=== PATIENT | male | born 1950 | race Caucasian/White ===

== ENCOUNTER → 2016-11-02 | Outpatient (CLI) | payer MEDICARE, OTHER | END | disposition home or self-care (01) | LOC: GMAJ 10:49 | PROVIDERS: ATTEND Family Medicine | DX: Z12.5 Encounter for screening for malignant neoplasm of prostate (principal) ==

== ENCOUNTER → 2019-12-22 | Outpatient (CLI) | payer MEDICARE, OTHER ==
--- NOTE | 2019-12-22 09:27 | US ---
EXAM DESCRIPTION: Carotid Duplex: ULTRASOUND. CLINICAL HISTORY: 69 years Male OCCLUSION AND STENOSIS COMPARISON: None. TECHNIQUE: Transcutaneous scanning utilizing jesus-scale and Doppler modes to evaluate the bilateral carotid systems and vertebral arteries. Percentage of diameter of stenosis or no stenosis recorded will be based upon NASCET criteria. FINDINGS: Peak systolic/end diastolic velocities (CM-Sec) CCA Right 115/23 Left 132/21. ICA Right proximal 60/19, mid 63/18. Left proximal 46/13, Distal 91/21. Vertebral Right 45/14 Left 48/10. ECA (PS Only) Right 94 left 89. ICA/CCA peak systolic velocity ratio: Right 0.5 Left 0.7 ICA/CCA end diastolic velocity ratio: Right 0.8 Left 1.0 Vertebral arteries: antegrade flow. Comments Comments: Atherosclerotic calcifications in the bilateral common carotid bulbs and the bilateral ICAs. Right proximal ICA: Area stenosis and diameter stenosis less than 20%. IMPRESSION: 1. Doppler evaluation of the bilateral carotid systems and vertebral arteries shows no hemodynamically significant stenoses (less than 70%). 2. No significant amount of plaque in the carotid arteries bilaterally. Bilateral vertebral arteries showed antegrade-cephalad flow. Electronically signed by: Atul Medina MD 12/22/2019 9:25 AM CDT
--- NOTE | 2019-12-22 09:32 | CT ---
EXAM DESCRIPTION: Head CLINICAL HISTORY: OCCLUSION AND STENOSIS OF BILATERAL CAROTID ARTERIES COMPARISON: None TECHNIQUE: Noncontrast transaxial CT images of the head are obtained from base to vertex. This exam was performed according to our departmental dose-optimization program, which includes automated exposure control, adjustment of the mA and/or kV according to patient size and/or use of iterative reconstruction technique. FINDINGS: The midline structures are not displaced. Sulci are age-appropriate. There are areas of decreased attenuation in the periventricular white matter and the white matter of the centrum semiovale. There is no evidence of mass, mass-effect, hydrocephalus, or acute intracranial hemorrhage. No abnormal extra axial fluid collection is seen. Mild calcifications of the intracranial arterial vasculature. Bone windows show no evidence of depressed skull fracture. Small area of scalp soft tissue swelling and increased attenuation in the right parietal region measures 5 mm thickness by 2 cm transverse. This could represent scalp soft tissue scarring. The visualized paranasal sinuses are unremarkable. IMPRESSION: 1. Age-appropriate atrophy with evidence of old small vessel ischemic type changes seen. 2. No acute abnormality is seen on noncontrast CT of the head. CT is insensitive for evaluation of acute intracranial ischemia. If clinically indicated further evaluation with MRI may be useful. Electronically signed by: Henrry Woods MD 12/22/2019 9:30 AM CDT
== END | disposition home or self-care (01) ==
LOC: US 07:43
PROVIDERS: ATTEND Family Medicine
DX: I65.23 Occlusion and stenosis of bilateral carotid arteries (principal)

== ENCOUNTER 2020-03-17 11:04 | Emergency (ER) | payer OTHER ==
--- NOTE | 2020-03-17 12:31 | RAD ---
EXAM DESCRIPTION: Chest,1 View CLINICAL HISTORY: 69 years Male, cough, mild sob x1 week COMPARISON: None. FINDINGS: One view/radiograph Heart size and pulmonary vessels are within normal limits. There is no pneumothorax or pleural effusion. The lungs are clear bilaterally. The soft tissues are unremarkable. No acute osseous findings. IMPRESSION: No acute cardiopulmonary abnormality. Electronically signed by: Farhan Pereira MD 03/17/2020 12:30 PM [facility]
--- NOTE | 2020-03-17 13:22 | ED.PDOC ---
History of Present Illness - General Chief Complaint: Respiratory Problem Time Seen by Provider: 03/17/20 12:13 - History of Present Illness Initial Comments: The patient is a 69-year-old male presents emergency room secondary to a week's worth of a cough and a mild runny nose as well as some mild shortness of breath. He had a coronavirus swab done at the drive-through clinic that we are waiting for the results on. Lung tidwell actually sound clear. He has not any respiratory distress. Oxygen saturations ranged from 94 to 98% on room air here. He is not currently febrile. No significant chest pain. No swelling in the extremities. Timing/Duration: 1 week Severity: mild Improving Factors: nothing Worsening Factors: nothing Associated Symptoms: cough, malaise Home Medications: Ambulatory Orders Azithromycin 500 mg PO DAILY #5 tab 03/17/20 predniSONE [Prednisone] 40 mg PO DAILY #10 tab 03/17/20 Review of Systems - Review of Systems Constitutional: States: malaise EENTM: States: nose congestion Respiratory: States: cough, short of breath - Very mild Cardiology: States: no symptoms reported Gastrointestinal/Abdominal: States: no symptoms reported Genitourinary: States: no symptoms reported Musculoskeletal: States: no symptoms reported Skin: States: no symptoms reported Neurological: States: headache Endocrine: States: no symptoms reported All other Systems: No Change from Baseline Physical Exam - Physical Exam General Appearance: Alert, Comfortable, No apparent distress Eye Exam: bilateral normal Ears, Nose, Throat: hearing grossly normal, normal pharynx, nasal congestion Neck: full range of motion, supple Respiratory: lungs clear, normal breath sounds, no respiratory distress, no accessory muscle use Cardiovascular/Chest: normal peripheral pulses, no edema, other - Regular rate Peripheral Pulses: radial,right: 2+, radial,left: 2+ Gastrointestinal/Abdominal: non tender, soft Rectal Exam: deferred Back Exam: no CVA tenderness, no vertebral tenderness Extremity: non-tender, normal inspection, no pedal edema, normal capillary refill 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 Progress - Progress Progress: 03/17/20 13:23 The patient is a 69-year-old male presented emergency room with an acute coronavirus infection of about a week's duration. The patient is doing well as far as oxygenating and no significant respiratory distress. He is going to be placed on azithromycin and prednisone for the next 5 days. Obviously if he is worsening then he needs to return to the emergency room. He does of course need to isolate for the next couple weeks. Keep well-hydrated. Tylenol used for discomfort. ER warnings are given. doris meléndez [id number] - Results/Orders Results/Orders: Chest x-ray shows no evidence of acute pathology. EKG shows normal sinus rhythm with occasional PACs. Normal axis. Slow R wave progression. No ST segment or T wave changes indicative of acute ischemia. The patient tested positive for coronavirus at his primary care doctor today. Departure - Departure Clinical Impression: Coronavirus infection Disposition: Discharge to Home or Self Care Condition: Fair Departure Forms: ED Discharge - Pt. Copy, Patient Portal Self Enrollment Instructions: Coronavirus Disease 2019 (COVID-19) Diet: regular diet Activity: increase activity as tolerated Referrals: Iván Padilla MD [Primary Care Provider] - 1-2 Weeks Prescriptions: Azithromycin 500 mg PO DAILY #5 tab predniSONE [Prednisone] 40 mg PO DAILY #10 tab Home Medications: Ambulatory Orders Azithromycin 500 mg PO DAILY #5 tab 03/17/20 predniSONE [Prednisone] 40 mg PO DAILY #10 tab 03/17/20 Additional Instructions: The patient is a 69-year-old male presented emergency room with an acute coronavirus infection of about a week's duration. The patient is doing well as far as oxygenating and no significant respiratory distress. He is going to be placed on azithromycin and prednisone for the next 5 days. Obviously if he is worsening then he needs to return to the emergency room. He does of course need to isolate for the next couple weeks. Keep well-hydrated. Tylenol used for discomfort. ER warnings are given.
[2020-03-17 13:39] VITALS: BP 125/76; TEMP 99.2; O2SAT 96
== END 2020-03-17 13:30 | disposition home or self-care (01) ==
LOC: ER 11:04
DX: U07.1 COVID-19 (principal); I49.1 Atrial premature depolarization

== ENCOUNTER 2020-03-22 17:39 | Observation (INO) | payer OTHER ==
[2020-03-22] MEDS ORDERED: SODIUM CHLORIDE 0.9% (FLUSH) 10 ML SYG IV PRN (18:27)
[2020-03-22] MEDS ORDERED: ADENOSINE INJECTION 6 MG/2 ML VIAL IV ONE (18:28)
[2020-03-22] MEDS ORDERED: SODIUM CHLORIDE 0.9% 1000ML 1,000 ML ONE (18:43)
--- NOTE | 2020-03-22 19:03 | RAD ---
EXAM DESCRIPTION: Chest,1 View CLINICAL HISTORY: palpitations COMPARISON: March 17, 2020 FINDINGS: Cardiac silhouette is within normal limits. Aorta is tortuous. EKG leads project over the chest. Bandlike opacity at the level of the lingula could be secondary to subsegmental atelectasis. Early infectious process cannot be excluded. Short-term follow-up recommended. There is no acute osseous process visualized. IMPRESSION: Bandlike opacity at the level of the lingula could be secondary to subsegmental atelectasis. Early infectious process cannot be excluded. Short-term follow-up recommended. Electronically signed by: Suhail Mei MD 03/22/2020 7:02 PM [facility] [email or web address]]
--- NOTE | 2020-03-22 21:10 | ED.PDOC ---
History of Present Illness - General Chief Complaint: Respiratory Problem Stated Complaint: chest tightness, light headed, tachycardia Time Seen by Provider: 03/22/20 18:27 Source: patient, RN notes reviewed, Vital Signs reviewed Exam Limitations: no limitations - History of Present Illness Initial Comments: Patient is a 70-year-old white male who presents with complaints of weakness, chest tightness and shortness of breath. This started acutely approximately 1 hour prior to arrival. Patient has no history of cardiac problems. Patient does have a history of hypertension, high cholesterol and diabetes. Patient noted his heart rate to be in the 140s at home and came in after the recommendation from his daughter who is a nurse. Patient states that the chest tightness is mild in intensity. There is no radiation of this tightness. The tightness and shortness of breath are worse with exertion. It is partially relieved by resting. Timing/Duration: 1 hour Severity: moderate Improving Factors: rest Worsening Factors: movement Associated Symptoms: chest pain, shortness of breath Allergies/Adverse Reactions: Allergies NO KNOWN ALLERGY Allergy (Verified 03/22/20 18:26) Home Medications: Ambulatory Orders Azithromycin 500 mg PO DAILY #5 tab 03/17/20 predniSONE [Prednisone] 40 mg PO DAILY #10 tab 03/17/20 Review of Systems - Review of Systems Constitutional: States: no symptoms reported, see HPI. Denies: chills, fever, malaise, weakness EENTM: States: no symptoms reported. Denies: eye pain, blurred vision, double vision Respiratory: States: see HPI, short of breath. Denies: wheezing Cardiology: States: see HPI, chest pain, palpitations. Denies: syncope Gastrointestinal/Abdominal: States: no symptoms reported. Denies: abdominal pain, diarrhea, nausea, vomiting Genitourinary: States: no symptoms reported Musculoskeletal: States: no symptoms reported. Denies: back pain, joint pain, neck pain Skin: States: no symptoms reported. Denies: change in color, dryness, rash Neurological: States: no symptoms reported. Denies: headache, tingling, tremors, weakness Endocrine: States: no symptoms reported. Denies: increased hunger, increased thirst, increased urine Hematologic/Lymphatic: States: no symptoms reported. Denies: blood clots, easy bleeding All other Systems: No Change from Baseline Past Medical History (General) - Patient Medical History Hx Hypertension: Yes Hx Diabetes: Yes Surgical History: Hysterectomy - Vaccination History Hx Influenza Vaccination: Yes - Social History Hx Tobacco Use: No Hx Alcohol Use: No Hx Substance Use: No Hx Substance Use Treatment: No Hx Depression: No Family Medical History - Family History Mother Family History: No Known Physical Exam - Physical Exam General Appearance: Alert, Anxious, Restless, Well Developed, Well Groomed, Well Hydrated, Well Nourished Eye Exam: bilateral normal Ears, Nose, Throat: hearing grossly normal, normal ENT inspection, normal pharynx Neck: non-tender, full range of motion, supple Respiratory: chest non-tender, lungs clear, normal breath sounds, no respiratory distress, no accessory muscle use Cardiovascular/Chest: normal peripheral pulses, no edema, no gallop, no murmur, tachycardia, irregularly irregular Peripheral Pulses: radial,right: 2+, radial,left: 2+ Gastrointestinal/Abdominal: normal bowel sounds, non tender, soft, no organomegaly, distended - Pt is obese Back Exam: normal inspection, no CVA tenderness, no vertebral tenderness Extremity: normal range of motion, non-tender, normal inspection, no calf tenderness 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 fib/flutter, Covid, palpitations among others. 03/22/20 21:34 Patient has converted after 2 doses of Cardizem. His shortness of breath and chest tightness has resolved. Plan on admission for further evaluation or repeat cardiac enzymes. I discussed this plan of care with the patient he voices understanding and agreement. I discussed this with Brianna Matos NP, and she accepts patient for admission. Serg Graham M.D. #[id number] - Results/Orders Results/Orders: EKG performed 22 March 2020 at 1821 hours: Atrial flutter with 2-1 AV conduction block, left axis deviation, nonspecific ST changes, abnormal EKG. No comparison EKG available at this time. Repeat EKG performed 22 March 2020 at 2126 hrs.: Sinus bradycardia with pr emature supraventricular complexes at 57 bpm, normal axis deviation, no ST or T wave changes concerning for ischemia, otherwise normal EKG. Comparison EKG from earlier in the evening shows a change from his atrial flutter. EXAM DESCRIPTION: Chest,1 View CLINICAL HISTORY: palpitations COMPARISON: March 17, 2020 FINDINGS: Cardiac silhouette is within normal limits. Aorta is tortuous. EKG leads project over the chest. Bandlike opacity at the level of the lingula could be secondary to subsegmental atelectasis. Early infectious process cannot be excluded. Short-term follow-up recommended. There is no acute osseous process visualized. IMPRESSION: Bandlike opacity at the level of the lingula could be secondary to subsegmental atelectasis. Early infectious process cannot be excluded. Short-term follow-up recommended. Electronically signed by: Suhail Mei MD 03/22/2020 7:02 PM 03/22/20 18:27 IV Care:Saline Lock per Protoc QSHIFT Telemetry ONCE Sodium Chloride 0.9% (Flush) [Saline Flush Syringe] 3 ml IV PRN PRN Pulse Oximetry Assessment DAILY URINALYSIS Stat 03/22/20 18:30 EKG STAT 03/23/20 09:00 Pulse Ox Daily Laboratory Results - last 24 hr 03/22/20 03/22/20 18:40 18:40 WBC 9.8 RBC 5.46 Hgb 16.0 Hct 45.9 MCV 84.1 MCH 29.2 MCHC 34.8 RDW 13.4 Plt Count 226 MPV 8.5 Absolute Neuts (auto) 8.40 H Absolute Lymphs (auto) 0.80 L Absolute Monos (auto) 0.50 Absolute Eos (auto) 0.00 Absolute Basos (auto) 0.00 Neutrophils % 85.4 H Lymphocytes % 8.5 L Monocytes % 5.5 Eosinophils % 0.1 L Basophils % 0.5 PT 10.1 INR 1.02 PTT (SP) 23.5 D-Dimer, Quantitative < 131.0 L Sodium 138 Potassium 4.3 Chloride 103 Carbon Dioxide 24 Anion Gap 15.3 BUN 17 Creatinine 0.85 BUN/Creatinine Ratio 20.0 Random Glucose 337 H Serum Osmolality 290.5 Calcium 8.8 Magnesium 2.2 Total Bilirubin 0.9 Direct Bilirubin 0.2 Indirect Bilirubin 0.7 AST 27 ALT 35 Alkaline Phosphatase 38 L Creatine Kinase 53 CK-MB (CK-2) 3.3 CK-MB (CK-2) % Not Reportable Troponin I 0.02 B-Natriuretic Peptide 137.0 H Serum Total Protein 7.1 Albumin 3.9 Vital Signs 03/22/20 03/22/20 18:21 18:30 Temperature 96.0 F L Pulse Rate [ 144 H 144 H pulse ox] Respiratory 20 Rate Blood Pressure 108/86 [Left Arm] O2 Sat by Pulse 96 Oximetry Departure - Departure Clinical Impression: Atrial flutter by electrocardiogram, Paroxysmal atrial flutter Time of Disposition: 21:36 Disposition: Admit Patient Condition: Good Departure Forms: Patient Portal Self Enrollment Diet: low fat, low cholesterol Activity: ambulate only with walker Referrals: Ivná Padilla MD [Primary Care Provider] - 1-2 Weeks Home Medications: Ambulatory Orders Azithromycin 500 mg PO DAILY #5 tab 03/17/20 predniSONE [Prednisone] 40 mg PO DAILY #10 tab 03/17/20 Critical Care Note - Critical Care Note Total Time (mins): 45 Decision To Admit - Decistion To Admit Decision to Admit Date: 03/22/20 Decision to Admit Time: 19:00
[2020-03-23] MEDS ORDERED: SODIUM CHLORIDE 0.9% (FLUSH) 10 ML SYG IV PRN (02:45)
[2020-03-23] MEDS ORDERED: ACETAMINOPHEN 325 MG TAB PO PRN (02:45)
[2020-03-23] MEDS ORDERED: IV SET AND CAP CHANGE INJ INJ SCH (03:00)
[2020-03-23] MEDS: diltiaZEM HCL TAB 30 MG TAB PO SCH ×2 (03:51→07:41)
[2020-03-23] MEDS ORDERED: DEXTROSE 50% 25 GM/50 ML SYG IV PRN (04:39)
[2020-03-23] MEDS ORDERED: GLUCAGON INJ 1 MG VIAL SUBCU PRN (04:39)
[2020-03-23] MEDS ORDERED: PANTOPRAZOLE SODIUM TAB 40 MG PO SCH (06:30)
[2020-03-23] MEDS: INSULIN LISPRO 100 UNITS/ML PEN SUBCU SCH ×2 (07:03→12:15)
[2020-03-23] MEDS ORDERED: metFORMIN HCL 500 MG TAB ONE (07:36)
[2020-03-23] MEDS ORDERED: LISINOPRIL 5 MG TAB PO SCH (09:00)
[2020-03-23] MEDS ORDERED: SODIUM CHLORIDE 0.9% (FLUSH) 10 ML SYG IV SCH (09:00)
[2020-03-23] MEDS ORDERED: PYRIDOSTIGMINE BROMIDE 60 MG PO SCH (09:00)
[2020-03-23] MEDS ORDERED: NON-FORMULARY MEDICATION 1 EA MIS (Dulaglutide [Trulicity] 0.75 MG) SC SCH (09:00)
[2020-03-23] MEDS ORDERED: CHLORTHALIDONE 25 MG TAB PO SCH (09:00)
[2020-03-23] MEDS ORDERED: NON-FORMULARY MEDICATION 1 EA MIS (Metformin Hcl [Fortamet] 500 MG) PO SCH (09:00)
[2020-03-23] MEDS ORDERED: PNEUMOCOCCAL VACCINE 0.5 ML INJ IM ONE (12:47)
[2020-03-23 13:23] VITALS: BP 123/73; TEMP 98; O2SAT 93
[2020-03-23] MEDS ORDERED: ATORVASTATIN 20 MG TAB PO SCH (21:00)
[2020-03-24] MEDS ORDERED: NON-FORMULARY MEDICATION 1 EA MIS (Dulaglutide [Trulicity] 0.75 MG) SUBCU SCH (09:00)
[2020-03-24] MEDS ORDERED: ASPIRIN TABLET 325 MG TAB PO SCH (09:00)
--- NOTE | 2020-04-12 10:53 | SSS ---
SUPERVISING PHYSICIAN: Cali Guerrier MD DATE OF ADMISSION: 03/23/20 DATE OF DISCHARGE: 03/23/20 ADMISSION DIAGNOSIS: 1. Paroxysmal atrial fibrillation. DISCHARGE DIAGNOSIS: 1. Paroxysmal atrial fibrillation. 2. Hypertension. 3. Diabetes mellitus, type 2. CHIEF COMPLAINT: Chest tightness, palpitations. HISTORY OF PRESENT ILLNESS: Mr. Ramirez is a 70-year-old male patient with a history of diabetes mellitus, type 2, hypertension and hypercholesterolemia. He presented to the Emergency Room complaining of weakness, chest tightness and shortness of breath. He endorses the symptoms had started about an hour prior to his arrival. He has no significant other cardiac history other than hypertension and hypercholesterolemia. He noted his heart rate at home was in the 140s. His daughter is a nurse and recommended he come in for evaluation. On arrival to the ER, 12-lead EKG showed he was in atrial fibrillation/atrial flutter with rapid ventricular response in the 140s. He was given 2 doses of Cardizem and converted to sinus rhythm. His symptoms resolved with no more chest pain, no more chest tightness. His lab studies initially in the ER showed troponin 0.02. He was placed in observation for initiation of oral Cardizem and close monitoring. He was placed in observation in stable condition. PAST MEDICAL HISTORY: 1. Hypertension. 2. Diabetes mellitus, type 2. 3. Hypercholesterolemia. PAST SURGICAL HISTORY: None listed. MEDICATIONS: 1. Trulicity 0.75 mg weekly. 2. Lipitor 20 mg at bedtime. 3. Chlorthalidone 25 mg daily. 4. Lisinopril 5 mg daily. 5. Omeprazole 40 mg daily. 6. Fortamet 500 mg daily. 7. Pyridostigmine 60 mg t.i.d. ALLERGIES: NO KNOWN DRUG ALLERGIES. FAMILY HISTORY: Noncontributory to current admission. SOCIAL HISTORY: The patient is and lives in [place], [place]. 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 He has no history of tobacco or illicit drug use. REVIEW OF SYSTEMS: CONSTITUTIONAL: Denies any fevers, chills, general malaise or weakness. HEENT: Denies headaches, sore throats, earaches, nasal congestion, vision changes. RESPIRATORY: As noted in history of present illness, some mild shortness of breath. Denies coughing, wheezing. CARDIOVASCULAR: As noted in history of present illness, chest pains, palpitations. Denies syncopal episodes. GASTROINTESTINAL: Denies nausea, vomiting, diarrhea, constipation or abdominal pain. GENITOURINARY: Denies dysuria, hematuria, polyuria. MUSCULOSKELETAL: Denies joint pain, back pain, neck pain. SKIN: Denies lesions, rashes, moles or unexplained changes. NEUROLOGIC: Denies headaches, tingling, tremors, weakness, paresthesias or other focal deficits. HEMATOLOGIC: Denies unexplained bleeding, bruising or transfusion reactions. PHYSICAL EXAMINATION: VITAL SIGNS: Initially in the Emergency Room, he was afebrile at 96.0, pulse 144, blood pressure 108/86, respirations 20, saturation 96% on room air. After Cardizem and converting, on discharge he had temperature 98, pulse 61, blood pressure 123/73, respirations 20, saturation 97% on room air. GENERAL: The patient on admission and discharge was resting comfortably, did not appear to be in any acute distress, no complaining of any chest pain. HEENT: Tympanic membranes clear bilaterally. Oropharynx is pink, moist without any lesions. NECK: Supple, nontender with full range of motion. No jugular venous distention noted. RESPIRATORY: Lung sounds are clear to auscultation bilaterally without any rhonchi, wheezes or rales. CARDIOVASCULAR: Regular rate and rhythm without any appreciable murmurs, gallops, or rubs. ABDOMEN: Soft, nontender. Positive bowel sounds. EXTREMITIES: There is no edema. NEUROLOGIC: Cranial nerves II-XII are grossly intact. Facial features are symmetrical. Extraocular movements are within normal limits. There is no nystagmus noted. The patient is alert and oriented times three. SKIN: Warm, pink and dry. LABORATORY: CBC showed normal white count of 9,800, hemoglobin 16, hematocrit 45.9, platelet count 226,000. Differential showed a slight left shift. Coagulation studies showed normal PT, PTT and D-dimer. Chemistries showed normal electrolytes. Initial glucose was 337. Liver functions were all normal. Calcium and magnesium normal. Troponins within normal limits. CK within normal limits. MICROBIOLOGY: Nasal swab for COVID was negative. RADIOLOGY: EKG initially on admission showed atrial flutter with a rapid ventricular response in the 140s. After Cardizem and prior to discharge, EKG showed sinus rhythm with no ST or T-wave changes to indicate any acute ischemia or STEMI. Chest x-ray showed just a band-like opacity at the level of the lingula which could represent subsegmental atelectasis versus early infectious process cannot be certainly excluded. Followup recommended. HOSPITAL COURSE: Mr. Ramirez was placed in observation from the Emergency Room after he had presented with atrial flutter and rapid ventricular response. He was given two doses of Cardizem in the ER and did convert to sinus rhythm and was started on oral Cardizem 180 mg. The patient was placed on telemetry after placed in observation. He had no recurrence of the symptoms, he had no ectopy, he had no changes in his rhythm, showing a sinus rhythm. Prior to discharge, he was started on Eliquis after consultation with Dr. Padilla and Dior for rate control. He showed no symptoms of chest pains, no acute symptoms of any ischemia or STEMI or acute coronary syndrome. His rate was controlled, stable blood pressure with discharge blood pressure of 123/73 with heart rate 61, saturation 97% on room air. It was felt he had clinically stabilized and was showing stable on Cardizem to the point where he could be discharged to followup with Cardiology and his primary care physician. ASSESSMENT: 1. Paroxysmal atrial fibrillation. 2. Hypertension. 3. Diabetes mellitus, type 2. PLAN: Mr. Ramirez was admitted as noted above and treated for acute paroxysmal atrial fibrillation and converted with Cardizem and started on oral Cardizem and Eliquis. He was discharged home to followup with Dr. Padilla and Cardiology to be arranged by Dr. Padilla. He was to see Dr. Padilla on 03/28/20. He was to resume his normal diabetic diet and increase activity as tolerated. New medications prescribed on discharge were: 1. Cardizem 180 mg daily, #30, no refills. 2. Eliquis 5 mg twice daily, #60, no refills. All medications to be continued refills by Dr. Padilla as necessary. All other medications prior to hospitalization were continued, which included: 1. Trulicity 0.75 mg weekly. 2. Lipitor 20 mg at bedtime. 3. Chlorthalidone 25 mg daily. 4. Lisinopril 5 mg daily. 5. Omeprazole 40 mg daily. 6. Fortamet 500 mg daily. 7. Pyridostigmine 60 mg t.i.d. CONDITION ON DISCHARGE: Stable and improved. DISPOSITION: The patient was discharged home. #[id number] MTDD
== END 2020-03-23 13:10 | disposition home or self-care (01) ==
LOC: ER 17:39 → MS 22:48
PROVIDERS: ADMIT Nurse Practitioner Acute Care; ATTEND Nurse Practitioner Family
DX: I48.0 Paroxysmal atrial fibrillation (principal); I48.92 Unspecified atrial flutter; R07.89 Other chest pain; I10 Essential (primary) hypertension; E11.9 Type 2 diabetes mellitus without complications; E78.00 Pure hypercholesterolemia, unspecified; Z20.828 Contact with and (suspected) exposure to other viral communicable diseases; Z79.84 Long term (current) use of oral hypoglycemic drugs; Z79.899 Other long term (current) drug therapy
CPT/HCPCS: 96374; 96375; J0153; J7030; A4216 ×3; 85379; 82948 ×2; 36415; 82550; 80048; 82553; 85025; 85730; 85610; 84484; 80076; 83880; 36416 ×2; 71045; G0009; 94760 ×3; 99285; 93005 ×4; G0378; 87635

== ENCOUNTER 2020-05-30 05:25 | Day surgery (SDC) | payer OTHER ==
[2020-05-30] MEDS ORDERED: TROP1%/CYCLOPEN 1%/PHENYL 2.5% DROPS OPHTH ONE (05:26)
[2020-05-30] MEDS ORDERED: MIDAZOLAM INJ 2 MG/2 ML VIAL ONE (06:58)
[2020-05-30] MEDS ORDERED: PROPARACAINE 0.5% OPHTH SOL 15 ML BTTL RIGHT_EYE ONE (08:58)
[2020-05-30] MEDS ORDERED: DEXAMETHASONE 0.1% OPHTH SOL 1 DROP RIGHT_EYE ONE ×2 (09:10→09:18)
[2020-05-30] MEDS ORDERED: TOBRAMYCIN SULF 0.3 % OPHT SOL 1 DROP RIGHT_EYE ONE ×2 (09:10→09:18)
[2020-05-30] MEDS ORDERED: MOXIFLOXACIN HCL (OPHTH) 1 DROP DROPS RIGHT_EYE ONE ×2 (09:10→09:18)
[2020-05-30] MEDS ORDERED: LIDOCAINE 1% MPF 2 ML VIAL INJ ONE (09:10)
[2020-05-30] MEDS ORDERED: BRIMONIDINE 0.2% OPHTH DROPS RIGHT_EYE ONE ×2 (09:11→09:18)
== END 2020-05-30 10:02 | disposition home or self-care (01) ==
LOC: AMB 05:25
PROVIDERS: ATTEND Ophthalmology
DX: E11.36 Type 2 diabetes mellitus with diabetic cataract (principal); H25.11 Age-related nuclear cataract, right eye; I10 Essential (primary) hypertension; Z79.84 Long term (current) use of oral hypoglycemic drugs; Z79.899 Other long term (current) drug therapy
CPT/HCPCS: 00142; 36416; 66984; 82948; J2250

== ENCOUNTER 2020-06-20 05:28 | Day surgery (SDC) | payer OTHER ==
[2020-06-20] MEDS ORDERED: TROP1%/CYCLOPEN 1%/PHENYL 2.5% DROPS OPHTH ONE (05:29)
[2020-06-20] MEDS ORDERED: MIDAZOLAM INJ 2 MG/2 ML VIAL ONE (07:40)
[2020-06-20] MEDS ORDERED: LIDOCAINE 1% 2 ML VIAL INJ ONE (07:44)
[2020-06-20] MEDS ORDERED: DEXAMETHASONE 0.1% OPHTH SOL 1 DROP LEFT_EYE ONE (07:44)
[2020-06-20] MEDS ORDERED: TOBRAMYCIN SULF 0.3 % OPHT SOL 1 DROP LEFT_EYE ONE (07:44)
[2020-06-20] MEDS ORDERED: BRIMONIDINE 0.2% OPHTH DROPS LEFT_EYE ONE (07:44)
[2020-06-20] MEDS ORDERED: PROPARACAINE 0.5% OPHTH SOL 15 ML BTTL LEFT_EYE ONE (07:44)
[2020-06-20] MEDS ORDERED: MOXIFLOXACIN HCL (OPHTH) 1 DROP DROPS LEFT_EYE ONE (07:44)
== END 2020-06-20 09:02 | disposition home or self-care (01) ==
LOC: AMB 05:28
PROVIDERS: ATTEND Ophthalmology
DX: E11.36 Type 2 diabetes mellitus with diabetic cataract (principal); H25.12 Age-related nuclear cataract, left eye; I10 Essential (primary) hypertension
CPT/HCPCS: 00142; 36416; 66984; 82948; J2250